=== PATIENT | female | born 1990 | race Caucasian/White ===

== ENCOUNTER 2016-12-05 12:24 | Emergency (ER) | payer MEDICAID ==
[~2016-12-05] VITALS: Ht 154.9 cm; Wt 84.4 kg
[2016-12-05 16:29] VITALS: BP 110/65
== END 2016-12-05 16:29 | disposition home or self-care (01) ==
LOC: ED 12:24
DX: J30.2 Other seasonal allergic rhinitis (principal)

== ENCOUNTER 2017-03-18 21:23 | Emergency (ER) | payer MEDICAID ==
[2017-03-18 23:20] LABS: microscopic required? YES; urine erythrocyte 2+ (NEGATIVE)
[2017-03-18 23:21] LABS: BASOPHIL % 0.7 % (0-2); RED CELL DISTRIBUTION WIDTH 13.5 % (11.5-14.5)
[2017-03-18 23:22] LABS: PLATELET COUNT 406 x10^3mcL (130-400)
[2017-03-18 23:38] LABS: CALCIUM 9.3 mg/dL (8.5-10.1); CARBON DIOXIDE 30.3 mmol/L (21-32); CHLORIDE SERUM 101 mmol/L (98-107); CREATININE SERUM 0.6 mg/dL (0.6-1.0); GFR1 > 60 mL/min; GLUCOSE SERUM 113 mg/dL (74-106); POTASSIUM SERUM 3.5 mmol/L (3.5-5.1); SODIUM SERUM 142 mmol/L (136-145)
[2017-03-18 23:42] LABS: ALKALINE PHOSPHATASE 76 U/L (46-116); ALT/SGPT 18 U/L (14-59); AMYLASE 43 U/L (25-115); AST/SGOT 11 U/L (15-37); BILIRUBIN TOTAL 0.2 mg/dL (0.20-1.00); LIPASE 100 IU/L (73-393); TOTAL PROTEIN, SERUM 7.8 g/dL (6.4-8.2)
[2017-03-19 00:51] VITALS: BP 130/80
== END 2017-03-19 00:51 | disposition home or self-care (01) ==
LOC: ED 21:23
PROVIDERS: Emergency Medicine
DX: K29.00 Acute gastritis without bleeding (principal); R51 Headache; R42 Dizziness and giddiness; R35.0 Frequency of micturition; M79.1 Myalgia
CPT/HCPCS: 36415; 83880; Q0092

== ENCOUNTER 2017-12-01 21:35 | Emergency (ER) | payer MEDICAID ==
[~2017-12-01] VITALS: Ht 154.9 cm; Wt 79.4 kg
[2017-12-01 22:33] VITALS: Ht 154.9 cm; Wt 79.4 kg
[2017-12-02 01:33] LABS: BASOPHIL % 1.4 % (0-2); PLATELET COUNT 369 x10^3mcL (130-400); RED CELL DISTRIBUTION WIDTH 12.6 % (11.5-14.5)
[2017-12-02 01:34] LABS: UA SPECIFIC GRAVITY 1.025 (1.005-1.035); microscopic required? YES; urine erythrocyte 2+ (NEGATIVE)
[2017-12-02 01:47] LABS: CALCIUM 8.3 mg/dL (8.5-10.1); CARBON DIOXIDE 28.6 mmol/L (21-32); CHLORIDE SERUM 104 mmol/L (98-107); CREATININE SERUM 0.6 mg/dL (0.6-1.0); GFR1 > 60 mL/min; GLUCOSE SERUM 96 mg/dL (74-106); POTASSIUM SERUM 4.1 mmol/L (3.5-5.1); SODIUM SERUM 142 mmol/L (136-145)
[2017-12-02 01:52] LABS: ALBUMIN 3.4 g/dL (3.4-5.0); ALKALINE PHOSPHATASE 49 U/L (46-116); ALT/SGPT 21 U/L (14-59); AST/SGOT 15 U/L (15-37); BILIRUBIN TOTAL 0.26 mg/dL (0.20-1.00); LIPASE 65 IU/L (73-393); TOTAL PROTEIN, SERUM 7.1 g/dL (6.4-8.2)
[2017-12-02 06:16] VITALS: BP 102/66
== END 2017-12-02 06:16 | disposition home or self-care (01) ==
LOC: ED 21:35
PROVIDERS: Emergency Medicine
DX: R10.13 Epigastric pain (principal); R11.10 Vomiting, unspecified; R35.0 Frequency of micturition; R30.0 Dysuria; R61 Generalized hyperhidrosis
CPT/HCPCS: J1885; J7030